=== PATIENT | male | born 1990 | race Caucasian/White ===

== ENCOUNTER → 2017-08-09 | Outpatient (CLI) | payer OTHER ==
--- NOTE | 2017-08-09 11:46 | REP ---
ULTRASOUND LOWER ABDOMINAL WALL: Real-time sonographic evaluation of the lower abdominal wall performed to evaluate for possible hernia. There is no sonographic evidence of anterior abdominal hernia involving the left lower quadrant or right lower quadrant. Imaging is performed at rest and with Valsalva maneuver. IMPRESSION: No sonographic evidence of anterior abdominal wall hernia inferiorly, bilaterally. Signed by Link Pool MD 08/09/2017 01:49 P
--- NOTE | 2017-08-09 11:49 | REP ---
BILATERAL INGUINAL ULTRASOUND: Real-time sonographic evaluation of the inguinal region is performed at rest and with Valsalva maneuver to evaluate for possible inguinal hernia. No inguinal hernia is seen. No mass or fluid collection is seen. IMPRESSION: No evidence of inguinal hernia bilaterally. Signed by Link Pool MD 08/09/2017 01:49 P
== END ==
LOC: M RAD 10:58
PROVIDERS: ATTEND Physician Assistant
DX: R10.32 Left lower quadrant pain (principal)

== ENCOUNTER 2018-04-06 20:06 | Emergency (ER) | payer SELFPAY, OTHER ==
[2018-04-06] MEDS: ONDANSETRON 4 MG ORAL DISINTEGRATING TAB (Q0162 PER 1MG) PO (22:03)
[2018-04-06] MEDS: AUGMENTIN 875 MG TAB PO (22:03)
[2018-04-06] MEDS: MORPHINE 4 MG/ML 1ML VIAL/SYRINGE (J2270) IM (22:04)
[2018-04-06] MEDS: NEOSPORIN OINT 0.9 GM PKT (FLOOR STOCK) TOP (22:30)
== END 2018-04-06 22:32 | disposition home or self-care (01) ==
LOC: M ED 20:06
DX: S51.811A Laceration without foreign body of right forearm, initial encounter (principal); S80.811A Abrasion, right lower leg, initial encounter; S81.831A Puncture wound without foreign body, right lower leg, initial encounter; S80.11XA Contusion of right lower leg, initial encounter; W54.0XXA Bitten by dog, initial encounter; Y92.410 Unspecified street and highway as the place of occurrence of the external cause; F17.210 Nicotine dependence, cigarettes, uncomplicated
CPT/HCPCS: J2270

== ENCOUNTER → 2020-09-01 | Outpatient (REF) | payer OTHER ==
[~2020-09-01] MED LIST: AUGM875T28 PO; HYDR-3715 PO
[2020-09-01 13:22] LABS: HEMOGLOBIN 15.3 g/dl (13.5-17.5); MEAN CORPUSCULAR HEMOGLOBIN 30.5 pg (27.0-33.0); MEAN CORPUSCULAR HGB CONC 31.9 g/dl (32.0-36.5); MEAN CORPUSCULAR VOLUME 95.8 fl (80.0-96.0); PLATELET COUNT, AUTOMATED 199 10^3/uL (150-450); RED BLOOD COUNT 5.01 10^6/uL (4.30-6.10); WHITE BLOOD COUNT 5.4 10^3/uL (4.0-10.0)
[2020-09-01 14:01] LABS: ALBUMIN 4.3 GM/DL (3.2-5.2); ALT/SGPT 19 U/L (12-78); BILIRUBIN,TOTAL 1.5 MG/DL (0.2-1.0); BLOOD UREA NITROGEN 14 MG/DL (7-18); CALCIUM LEVEL 9.5 MG/DL (8.5-10.1); CARBON DIOXIDE LEVEL 32 MEQ/L (21-32); CHLORIDE LEVEL 105 MEQ/L (98-107); CHOLESTEROL LEVEL 137 MG/DL (<200); CHOLESTEROL RISK RATIO 3.044 (<5); CREATININE FOR GFR 0.92 MG/DL (0.70-1.30); GLOMERULAR FILTRATION RATE > 60.0 (>60); GLUCOSE, FASTING 80 MG/DL (70-100); HDL CHOLESTEROL 45 MG/DL (>40); LDL CHOLESTEROL 73 MG/DL (<100); NON-HDL-C 92 MG/DL; POTASSIUM SERUM 4.3 MEQ/L (3.5-5.1); SODIUM LEVEL 141 MEQ/L (136-145); THYROID STIMULATING HORMONE 0.561 uIU/ML (0.358-3.740); TOTAL PROTEIN 7.4 GM/DL (6.4-8.2); TRIGLYCERIDES LEVEL 96 MG/DL (<150)
== END ==
LOC: M PLALAB 12:03
PROVIDERS: ATTEND Nurse Practitioner Family
DX: Z13.228 Encounter for screening for other metabolic disorders (principal); Z13.220 Encounter for screening for lipoid disorders

== ENCOUNTER → 2024-01-13 | Outpatient (CLI) | payer OTHER ==
[~2024-01-13] MED LIST changes: +E-Z-GAS II EFFERVESCENT PACKET (SODIUM BICARB./CITRIC ACID/SIMETHICONE) As Ordered ONE; +E-Z-HD 98% w/w 340GM SUSP BTL As Ordered ONE; +E-Z-PAQUE 96% w/w SUSP 176GM BTL As Ordered ONE
== END ==
LOC: M RAD 10:37
PROVIDERS: ATTEND Family Medicine
DX: K27.9 Peptic ulcer, site unspecified, unspecified as acute or chronic, without hemorrhage or perforation (principal); K92.2 Gastrointestinal hemorrhage, unspecified

== ENCOUNTER → 2024-03-20 | Outpatient (REF) | payer OTHER ==
[~2024-03-20] MED LIST changes: -E-Z-GAS II EFFERVESCENT PACKET (SODIUM BICARB./CITRIC ACID/SIMETHICONE) As Ordered ONE; -E-Z-HD 98% w/w 340GM SUSP BTL As Ordered ONE; -E-Z-PAQUE 96% w/w SUSP 176GM BTL As Ordered ONE; +OMEP-173 PO
== END ==
LOC: M LAB REF 17:56
PROVIDERS: ATTEND Internal Medicine Gastroenterology
DX: R19.7 Diarrhea, unspecified (principal); R10.31 Right lower quadrant pain

== ENCOUNTER 2024-03-23 10:16 | Day surgery (SDC) | payer OTHER ==
[~2024-03-23] VITALS: Ht 180.3 cm; Wt 66.6 kg
[2024-03-23] MEDS: NS 1,000 ML IV ONE (10:30)
[2024-03-23] MEDS ORDERED: LIDOCAINE 2% 100MG/5ML SDV (FOR ANES.) As Ordered ONE (11:49)
[2024-03-23] MEDS ORDERED: propofoL 200 MG/20 ML VIAL As Ordered ONE (11:49)
[2024-03-23 12:15] VITALS: BP 127/72; TEMP 96.9; O2SAT 99
== END 2024-03-23 12:23 | disposition home or self-care (01) ==
LOC: M OPP 10:16
PROVIDERS: ATTEND Internal Medicine Gastroenterology
DX: K52.9 Noninfective gastroenteritis and colitis, unspecified (principal); D12.2 Benign neoplasm of ascending colon; K64.8 Other hemorrhoids; K64.4 Residual hemorrhoidal skin tags; K57.30 Diverticulosis of large intestine without perforation or abscess without bleeding; K63.89 Other specified diseases of intestine; Z79.899 Other long term (current) drug therapy; Z90.5 Acquired absence of kidney; Z90.49 Acquired absence of other specified parts of digestive tract; Z87.891 Personal history of nicotine dependence